=== PATIENT | male | born 1970 | race Caucasian/White ===

== ENCOUNTER 2019-05-06 17:49 | Emergency (ER) | payer MEDICAID ==
[~2019-05-06] VITALS: Ht 172.7 cm; Wt 63.5 kg
[2019-05-06 17:52] VITALS: BP 105/71
[2019-05-06] MEDS ORDERED: DEXAMETHASONE 4 MG/ML, 5ML ONE (18:38)
[2019-05-06] MEDS ORDERED: DEXAMETHASONE 4 MG TABLET PO ONE (19:00)
== END 2019-05-06 19:32 | disposition home or self-care (01) ==
LOC: ED 19:10
DX: J03.00 Acute streptococcal tonsillitis, unspecified (principal); F17.200 Nicotine dependence, unspecified, uncomplicated
CPT/HCPCS: 87880; 99283